=== PATIENT | male | born 1935 | race Caucasian/White ===

== ENCOUNTER 2022-01-06 10:33 | Outpatient (REF) | payer MEDICARE, SELFPAY ==
--- NOTE | ~2022-01-06 | XR_ITS ---
EXAMINATION: XR HAND, LEFT CLINICAL INFORMATION: Pain. COMPARISON: None. TECHNIQUE: PA, lateral, and oblique views of the left hand. FINDINGS: There is mild reduction of PIP and DIP joint spaces without bony erosive changes, fracture or dislocation. There is mild periarticular spurring PIP joint second digit. The radiocarpal and intercarpal and carpometacarpal joint spaces are preserved. The MCP joints are preserved as well. No fracture or dislocation seen. 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 No acute fracture or dislocation. Especially no abnormality seen involving the 4th digit.
== END 2022-01-06 10:34 | disposition home or self-care (01) ==
LOC: HO.XRAY 10:33
PROVIDERS: Visit Provider Nurse Practitioner Family
DX: M79.645 Pain in left finger(s) (principal)
CPT/HCPCS: 73120